=== PATIENT | female | born 1950 | race Caucasian/White ===

== ENCOUNTER → 2022-12-20 | Outpatient (CLI) | payer MEDICARE ==
[~2022-12-20] MED LIST: IOPAMIDOL 370 MG/ML 100 ML INFUS..BTL INJ ONE
[2022-12-20 09:24] LABS: CREATININE, SERUM 0.8 mg/dL (0.57-1.11)
== END ==
LOC: CT 08:28
PROVIDERS: ATTEND Nurse Practitioner Gerontology
DX: R19.02 Left upper quadrant abdominal swelling, mass and lump (principal)
CPT/HCPCS: 36415; 74178; 82565; 84520; Q9967